=== PATIENT | female | born 1995 | race Caucasian/White ===

== ENCOUNTER 2019-12-30 17:49 | Emergency (ER) | payer BC, SELFPAY ==
[2019-12-30 18:00] VITALS: BP 142/80; PULSE 97; RESP 20; TEMP 36.7; O2SAT 98; BMI 38.9
--- NOTE | 2019-12-30 18:00 | PC.NURSE ---
LAB NOTIFIED OF COVID TEST ORDER
--- NOTE | 2019-12-30 18:05 | PC.NURSE ---
LAB AT BEDSIDE
--- NOTE | 2019-12-30 18:11 | HMH.EDUTC ---
[facility] Disposition Clinical Impression: Otitis media Qualifiers: Otitis media type: suppurative Chronicity: acute Laterality: left Recurrence: non-recurrent Spontaneous tympanic membrane rupture: without spontaneous rupture Qualified Code(s): H66.002 - Acute suppurative otitis media without spontaneous rupture of ear drum, left ear Disposition: Home, Self-Care Condition on Discharge: Good Instructions: Preventing the Spread of Coronavirus Discharge Instructions Referrals: Karen Rodriguez APRN [Primary Care Provider] - Time of Disposition: 18:14 Medical Decision Making - Ferdinand Inquiry Pt receiving controlled substance: No Vital Signs: 12/30/19 18:00 Temperature 98.0 F Temperature Source Oral Pulse Rate [Right Brachial] 97 H Respiratory Rate 20 Blood Pressure [Right Arm] 142/80 H Blood Pressure Mean [Right Arm] 100 Blood Pressure Source [Right Arm] Automatic Cuff Blood Pressure Position [Right Arm] Sitting 02 Sat by Pulse Oximetry 98 Oxygen Delivery Method Room Air Orders (Tests/Meds): ORDERS Category Date Time Status Coronavirus 19 Swab (OUTPT) Routine Lab 12/30/19 18:04 Received [facility] HPI - General Stated complaint: WANTS cOVID TEST Time Seen by Provider: 12/30/19 18:11 Mode of Arrival: Ambulatory Source of Information: Patient Limitations: No Limitations Description of Symptoms (Recalled from Triage Doc. by RN): PATIENT REPORTS SHE HAD AN E-VISIT WITH HER PCP YESTERDAY WHO DIAGNOSED AND TREATED HER FOR A SINUS INFECTION. STATES HER PCP TOLD HER TO GET TESTED FOR COVID HEENT Symptoms (Recalled from RN notes): Yes Resp Symptoms (Recalled from RN notes): No Skin Symptoms (Recalled from RN notes): No MS Symptoms (Recalled from RN notes): No Functional Status (Recalled from RN notes): WNL - History of Present Illness Provider Complaint: Left ear pain, runny nose, sore throat, congestion and cough X 1 week. No fever. No vomiting or diarrhea. Cough productive. Mostly white, also green at times. Had telehealth visit with PCP yesterday. Started on Amoxil and Zyrtec but recommended COVID19 testing. Onset (ago): week(s) (1) Location: chest Relieving factors: none Exacerbating factors: none Associated symptoms: denies other symptoms Treatments prior to arrival: none - Related Data Home Medications Medication Instructions Recorded Confirmed norgestimate 0.25 mg-ethinyl 1 tab PO QDAY 05/29/17 12/30/19 estradiol 35 mcg tablet Amoxicillin [Amoxicillin 875MG 875 mg PO Q12H 12/30/19 12/30/19 Tab] Cetirizine HCl [Allergy Relief] 10 mg PO DAILY 12/30/19 12/30/19 Allergies Allergy/AdvReac Type Severity Reaction Status Date / Time No Known Allergies Allergy Verified 08/11/18 16:31 - Worker's Comp Is this a Worker's Comp case?: No [facility] History - Hepatitis A Screen Drug use history?: No High risk sexual behaviors?: No History of sexually transmitted infection?: No Currently employed?: No Childcare worker?: No Do you have indoor plumbing?: Yes Do you have electricity?: Yes Attestation statement:: This patient has been screened for Hepatitis A risk factors. I have reviewed the patient's past medical history: Yes Laterality Cases: Bilateral: Other Other Surgeries: Yes: Cholecystectomy, Other Amputation: No Fractures: Yes - Social History Smoking Status: Never smoker Alcohol Intake: never Alcohol Intake Frequency:: other Substance Use Type: denies use Occupational Status: other Housing: house Household Members: family Family Hx:: Hypertension ROS Obtained: Yes All systems reviewed & no additional complaints - Constitutional Constitutional: Denies body ache, Denies chills, Denies fever(s) - ENT Ears, Nose, Mouth, and Throat: Reports otalgia, Reports nasal congestion, Reports nasal discharge, Reports sinus pain, Reports sore throat - Respiratory Respiratory: Yes cough, No dyspnea - Gastrointestinal Gastrointestingal: Denies: loose stools, vomiting Ph
[2019-12-30 18:22] VITALS: BP 142/80; PULSE 97; RESP 20; TEMP 36.7; O2SAT 98
== END 2019-12-30 18:25 | disposition home or self-care (01) ==
PROVIDERS: Emergency Provider Physician Assistant; PCP Nurse Practitioner
DX: Z20.828 Contact with and (suspected) exposure to other viral communicable diseases (principal); H66.002 Acute suppurative otitis media without spontaneous rupture of ear drum, left ear; Z90.49 Acquired absence of other specified parts of digestive tract
CPT/HCPCS: 99201; U0003